=== PATIENT | female | born 1995 | race Caucasian/White ===

== ENCOUNTER 2020-10-03 20:40 | Emergency (ER) | payer OTHER ==
[2020-10-03 20:46] VITALS: BP 130/87; PULSE 95; TEMP 97; BMI 48.4
[2020-10-03] MEDS ORDERED: LIDOCAINE 5% TOPICAL PATCH TP ONE (21:46)
[2020-10-03] MEDS ORDERED: KETOROLAC TROMETHAMINE 30 MG/1 ML VIAL IM ONE (21:46)
[2020-10-03] MEDS ORDERED: CYCLOBENZAPRINE HCL 5 MG TABLET PO ONE (21:46)
[2020-10-03] MEDS ORDERED: CYCLOBENZAPRINE HCL 10 MG TABLET (FP) ONE (22:03)
[2020-10-03] MEDS ORDERED: KETOROLAC TROMETHAMINE 30 MG/1 ML VIAL ONE (22:03)
[2020-10-03] MEDS ORDERED: LIDOCAINE 5% TOPICAL PATCH ONE (22:03)
[2020-10-03] MEDS ORDERED: ACETAMINOPHEN 325 MG TABLET (FP) PO ONE (22:54)
[2020-10-03] MEDS ORDERED: ACETAMINOPHEN 500 MG TABLET (FP) ONE (22:55)
[2020-10-03] MEDS ORDERED: oxyCODONE HCL 5 MG TABLET PO ONE (23:25)
[2020-10-03] MEDS ORDERED: oxyCODONE HCL 5 MG TABLET ONE (23:29)
== END 2020-10-04 | disposition home or self-care (01) ==
LOC: JER 20:40
PROC: 3E0233Z Introduction of Anti-inflammatory into Muscle, Percutaneous Approach (ICD-10-PCS; principal; 2020-10-03)
DX: M54.5 Low back pain (principal)
CPT/HCPCS: 99284-25